=== PATIENT | female | born 1955 | race Caucasian/White ===

== ENCOUNTER 2021-01-04 12:37 | Emergency (ER) | payer OTHER, MEDICARE ==
[~2021-01-04] VITALS: Ht 170.2 cm; Wt 87.5 kg
[~2021-01-04 12:37] MED LIST: CIPRO500 MG PO; FARXIGA10 MG PO; LANTUS SOL100 UNIT/1 SUB-Q; LEVOTHYROXINE88 MCG PO; ULTRAM50 MG PO
[2021-01-04] MEDS ORDERED: RYBELSUS7 MG PO (12:49)
[2021-01-04] MEDS ORDERED: METFORMIN HCL500 M1 PO (12:50)
[2021-01-04] MEDS ORDERED: NEURONTIN300 MG PO (14:28)
== END 2021-01-04 14:40 | disposition home or self-care (01) ==
LOC: ED 12:37
DX: M79.605 Pain in left leg (principal); G62.9 Polyneuropathy, unspecified; E11.40 Type 2 diabetes mellitus with diabetic neuropathy, unspecified; Z88.5 Allergy status to narcotic agent; Z79.899 Other long term (current) drug therapy; Z79.4 Long term (current) use of insulin
CPT/HCPCS: 93971; 99283-25

== ENCOUNTER 2021-08-21 10:36 | Emergency (ER) | payer OTHER, MEDICARE ==
[~2021-08-21] VITALS: Ht 170.2 cm; Wt 81.2 kg
[~2021-08-21 10:36] MED LIST changes: +METFORMIN HCL500 M1 PO; +NEURONTIN300 MG PO; +RYBELSUS7 MG PO
--- OUTSIDE RECORDS SUMMARY | 2021-08-21 10:38 | XMS ---
PreManage Notification: NAGI DOUGHERTY Security Platform Attendant Events No recent Security Events currently on file CRITERIA MET - [facility] CARE PROVIDERS There are no care providers on record at this time. Jean Marie has no Care Guidelines for this patient. Radha VISIT COUNT (12 MO.) 2 [facility] TOTAL 2 NOTE: Visits indicate total known visits. ED/C VISIT TRACKING (12 MO.) 08/21/2021 10:37 [facility] [place] TYPE: Emergency COMPLAINT: - FLU SYMPTOMS 01/04/2021 12:[address] [facility] [place] TYPE: Emergency COMPLAINT: - L LEG PAIN/ INJURY DIAGNOSES: - Pain in left leg - rat exterminator (current) use of insulin - Allergy status to narcotic agent - Type 2 diabetes mellitus with diabetic neuropathy, unspecified - Polyneuropathy, unspecified - Other lobsterman (current) drug therapy INPATIENT VISIT TRACKING (12 MO.) No inpatient visits to display in this time frame [email or web address]
[2021-08-21] MEDS ORDERED: TRAMADOL HCL50 MG PO (10:56)
[2021-08-21] MEDS ORDERED: BASAGLAR K100 UNIT/1 SQ (10:56)
[2021-08-21] MEDS ORDERED: OZEMPIC0.25 MG/0. SQ (10:56)
[2021-08-21] MEDS ORDERED: METFORMIN HCL500 M1 PO (11:07)
[2021-08-21] MEDS ORDERED: PREDNISONE20 MG PO (12:19)
[2021-08-21] MEDS ORDERED: PROVENTIL HFA6.7 GM INH (12:19)
== END 2021-08-21 14:08 | disposition home or self-care (01) ==
LOC: ED 10:36
DX: U07.1 COVID-19 (principal); J12.82 Pneumonia due to coronavirus disease 2019; E11.9 Type 2 diabetes mellitus without complications; Z88.5 Allergy status to narcotic agent; Z79.890 Hormone replacement therapy; Z79.4 Long term (current) use of insulin; Z79.84 Long term (current) use of oral hypoglycemic drugs; Z79.899 Other long term (current) drug therapy; Z23 Encounter for immunization
CPT/HCPCS: 71045; 96374; 99284-25; C9803; J2405; J7512; M0247; U0003